=== PATIENT | male | born 1955 | race Caucasian/White ===

== ENCOUNTER 2019-05-17 21:59 | Emergency (ER) | payer MEDICAID, OTHER ==
[~2019-05-17] VITALS: Ht 185.4 cm; Wt 72.7 kg
[~2019-05-17 21:59] MED LIST: CLIN150C8 PO
[2019-05-17 22:06] VITALS: BP 165/91
== END 2019-05-18 01:05 | disposition home or self-care (01) ==
LOC: ER 22:01
DX: R03.0 Elevated blood-pressure reading, without diagnosis of hypertension (principal); R06.02 Shortness of breath; F17.210 Nicotine dependence, cigarettes, uncomplicated; Z98.890 Other specified postprocedural states; Z59.0 Homelessness; Z79.2 Long term (current) use of antibiotics
CPT/HCPCS: 93005; 99283

== ENCOUNTER 2019-06-17 20:33 | Emergency (ER) | payer MEDICAID, OTHER ==
[~2019-06-17] VITALS: Ht 182.9 cm; Wt 72.7 kg
--- NOTE | 2019-06-17 21:09 | NUR ---
pt is 63 yo male would like to complete lab tests he was suppose to have in April and he would like "paperwork for SSD", pt has no complaints at this time, resting quietly on gurney waiting to be evaluated by provider
[2019-06-17 22:04] VITALS: BP 146/102
== END 2019-06-17 22:12 | disposition home or self-care (01) ==
LOC: ER 20:34
DX: R20.0 Anesthesia of skin (principal); F17.200 Nicotine dependence, unspecified, uncomplicated; Z59.0 Homelessness; Z98.890 Other specified postprocedural states
CPT/HCPCS: 99281

== ENCOUNTER 2022-04-13 05:57 | Inpatient (IN) | payer MEDICAID, MEDICARE, OTHER ==
[~2022-04-13] VITALS: Ht 182.9 cm; Wt 77.3 kg
[2022-04-13] MEDS ORDERED: calcium gluconate inj. 2 GM in normal saline 100ml IV soln 100 ML IV STA (06:27)
[2022-04-13] MEDS ORDERED: calcium gluconate inj. 1 GM in NS 100ml IV soln (110 ML) IV ONE ×2 (06:50→06:54)
[2022-04-13 06:52] LABS: HEMATOCRIT 24.9 % (42.0-52.0); HEMOGLOBIN 8.1 g/dl (14.0-17.9); MEAN CORPUSCULAR HEMOGLOBIN 31.1 PG (27.0-31.0); MEAN CORPUSCULAR HGB CONC 32.6 g/dL (33.0-36.5); MEAN CORPUSCULAR VOLUME 95.2 FL (78-98); MEAN PLATELET VOLUME 7.8 FL (7.4-10.4); PLATELET COUNT 261 X10'3 (140-440); RED BLOOD COUNT 2.62 X10'6 (4.70-6.10); RED CELL DISTRIBUTION WIDTH 13.1 % (11.5-14.5)
[2022-04-13 07:00] LABS: ABG BASE EXCESS -20.2 mmol/L (-2.0-2.0); ABG HCO3 6.4 mmol/L (22.0-26.0); ABG OXYGEN SATURATION 98.7 % (94-97); ABG PCO2 (T) 16.9 mmHg (35.0-48.0); ABG PO2 (T) 231.2 mmHg (75.0-100.0); ALLEN'S TEST POSITIVE; FCOHb 0.6 % (0.0-3.9); FLOW 15 L/min; FMetHb 0.5 % (0.0-1.5); FO2Hb 97.6 % (94-97); PATIENT TEMPERATURE 35.6; TOTAL HEMOGLOBIN 7.5 G/dl (14.0-17.9)
--- NOTE | 2022-04-13 07:04 | NUR ---
Emergency transfusion started
[2022-04-13] MEDS ORDERED: CefTRIAXone/D5W-Rocephin 1gm 50 ML IV ONE (07:05)
[2022-04-13] MEDS ORDERED: ringers solution, lacted 1,000 ML IV ONE ×2 (07:10→09:50)
[2022-04-13 07:16] LABS: ALANINE AMINOTRANSFERASE 100 U/L (12-78); ALBUMIN 1.5 G/DL (3.4-5.0); ALBUMIN/GLOBULIN RATIO 0.4 (1.1-1.5); ALKALINE PHOSPHATASE 140 IU/L (46-116); ANION GAP 22 (8-16); BILIRUBIN,TOTAL 0.8 MG/DL (0.1-1.0); BLOOD UREA NITROGEN 44 MG/DL (7-18); BUN/CREATININE RATIO 25.6 (5.4-32.0); CALCIUM 8.1 MG/DL (8.5-10.1); CHLORIDE 100 MMOL/L (99-107); CREATININE 1.72 MG/DL (0.60-1.10); GLUCOSE 268 MG/DL (70-104); SODIUM 133 MMOL/L (135-145); TOTAL PROTEIN 5.5 G/DL (6.4-8.2); eGFR 40 ML/MIN
[2022-04-13] MEDS ORDERED: vancomycin/NS 1 GM ADD-VANTAGE 250 ML IV ONE (07:20)
[2022-04-13 07:23] LABS: ASPARTATE AMINO TRANSFERASE 87 U/L (10-37); POTASSIUM 5.3 MMOL/L (3.5-5.1)
[2022-04-13 07:27] LABS: PLATELET ESTIMATE NORMAL
[2022-04-13 07:28] LABS: TOTAL CARBON DIOXIDE 11.2 MMOL/L (24-32)
[2022-04-13 07:31] LABS: TOTAL CELLS COUNTED 100
[2022-04-13] MEDS ORDERED: LIDOcaine 2% 10ml TOPICAL JELLY (Urojet) TP ONE (08:02)
[2022-04-13 08:07] LABS: CLARITY,URINE CLEAR (Clear); COLOR,URINE YELLOW (Yellow); GLUCOSE, URINE 100 mg/dl (Neg); KETONES,URINE NEGATIVE (Neg); LEUKOCYTE ESTERASE ,URINE NEGATIVE (Neg); NITRITES, URINE NEGATIVE (Neg); OCCULT BLOOD,URINE NEGATIVE (Neg); PH,URINE 5.5 (4.8-8.0); PROTEIN,URINE TRACE mg/dl (Neg); UROBILINOGEN,URINE 0.2 E.U/dL (0.2-1.0)
[2022-04-13 08:15] LABS: UA COLLECTION TYPE FOLEY CATH
[2022-04-13] MEDS ORDERED: dextrose 50%-water 50ml dispensing syringe IV ONE (08:15)
[2022-04-13] MEDS ORDERED: insulin regular, human 10 units/0.1 ml syringe IV ONE (08:15)
[2022-04-13 08:16] LABS: RBC,URINE NONE SEEN /HPF (0-2)
[2022-04-13 08:17] LABS: BACTERIA,URINE FEW /HPF (Neg); MUCUS STRANDS FEW /LPF (Neg); SQUAMOUS EPITHELIAL CELL,UR MODERATE /LPF (FEW)
[2022-04-13 08:18] LABS: HYALINE CASTS 0-3 /LPF (NEGATIVE)
[2022-04-13] MEDS ORDERED: sodium bicarbonate (8.4%) 1 mEq/ml syringe IV ONE (08:22)
[2022-04-13] MEDS ORDERED: iohexol 300mg/ml 100ml inj. ONE (08:51)
[2022-04-13] MEDS ORDERED: sodium bicarbonate (8.4%) 1 mEq/ml syringe ONE (09:35)
[2022-04-13 10:36] LABS: ALBUMIN 0.9 G/DL (3.4-5.0); ANION GAP 10 (8-16); BLOOD UREA NITROGEN 41 MG/DL (7-18); BUN/CREATININE RATIO 25.9 (5.4-32.0); CALCIUM 7.1 MG/DL (8.5-10.1); CHLORIDE 105 MMOL/L (99-107); CREATININE 1.58 MG/DL (0.60-1.10); GLUCOSE 254 MG/DL (70-104); SODIUM 135 MMOL/L (135-145); TOTAL CARBON DIOXIDE 20.5 MMOL/L (24-32); eGFR 44 ML/MIN
[2022-04-13 10:37] LABS: BASOPHILS # (AUTO) 0.1 X10'3 (0-0.2); BASOPHILS % (AUTO) 0.2 % (0-1); EOSINOPHILS % (AUTO) 0 % (0-6); LYMPHOCYTES # (AUTO) 1.5 X10'3 (1.1-4.8); LYMPHOCYTES % (AUTO) 5.2 % (21-51); MEAN CORPUSCULAR HEMOGLOBIN 29.7 PG (27.0-31.0); MEAN CORPUSCULAR HGB CONC 32.5 g/dL (33.0-36.5); MEAN CORPUSCULAR VOLUME 91.3 FL (78-98); MONOCYTES # (AUTO) 2.2 X10'3 (0-0.9); MONOCYTES % (AUTO) 7.5 % (2-12); NEUTROPHILS # (AUTO) 25.4 X10'3 (1.8-7.7); NEUTROPHILS % (AUTO) 87.1 % (42-75); PLATELET COUNT 149 X10'3 (140-440); RED CELL DISTRIBUTION WIDTH 13.7 % (11.5-14.5)
[2022-04-13 10:48] LABS: WHITE BLOOD COUNT 29.1 X10'3 (4.5-11.0)
[2022-04-13 10:49] LABS: HEMOGLOBIN 6.8 g/dl (14.0-17.9)
[2022-04-13 11:20] VITALS: BP 85/56
[2022-04-13 11:35] VITALS: BP 105/70
[2022-04-13 12:02] VITALS: BP 103/75
[2022-04-13 12:15] LABS: APTT 32 SECONDS (22-32)
[2022-04-13 12:17] VITALS: BP 104/69
[2022-04-13] MEDS ORDERED: magnesium 4gm in 100ml NS 100 ML IV PRN (12:25)
[2022-04-13] MEDS ORDERED: mag hydrox/Alum hydrox/simeth 30ml oral suspension PO PRN (12:25)
[2022-04-13] MEDS ORDERED: magnesium Cl slow-release 64mg tablet PO PRN (12:25)
[2022-04-13] MEDS ORDERED: ondansetron/PF 4mg/2ml inj IV PRN (12:25)
[2022-04-13] MEDS ORDERED: potassium Cl 20 mEq SR tablet PO PRN ×2 (12:25)
[2022-04-13] MEDS ORDERED: acetaminophen 325mg tablet PO PRN (12:25)
[2022-04-13] MEDS ORDERED: magnesium hydroxide 30ml (MOM) UD suspension PO PRN (12:25)
[2022-04-13] MEDS ORDERED: potassium Cl 40MEQ/1/2NS 520ml 520 ML IV PRN (12:25)
[2022-04-13 12:44] VITALS: BP 118/72
[2022-04-13] MEDS: normal saline 1000ml 1,000 ML IV SCH ×2 (12:54→18:28)
[2022-04-13 14:22] LABS: HEMATOCRIT 33.7 % (42.0-52.0); HEMOGLOBIN 11.2 g/dl (14.0-17.9); MEAN CORPUSCULAR HEMOGLOBIN 28.7 PG (27.0-31.0); MEAN CORPUSCULAR HGB CONC 33.4 g/dL (33.0-36.5); MEAN PLATELET VOLUME 6.8 FL (7.4-10.4); PLATELET COUNT 132 X10'3 (140-440); RED BLOOD COUNT 3.92 X10'6 (4.70-6.10); RED CELL DISTRIBUTION WIDTH 16.6 % (11.5-14.5)
[2022-04-13] MEDS ORDERED: NO HOME MEDS (14:22)
[2022-04-13 14:28] LABS: WHITE BLOOD COUNT 50.1 X10'3 (4.5-11.0)
--- NOTE | 2022-04-13 14:35 | NUR ---
critical lab WBC 50.1, Dr Casas aware of critical value, gave verbal order to give vanco now
[2022-04-13] MEDS: piperacillin/tazo 3.375gm/50ml 50 ML IV SCH (15:04)
--- NOTE | 2022-04-13 15:11 | NUR ---
Louis berry in EDM - 04/13/22 at 1531 by BSINGH MD Casas @ bedside. Per start zoysn and vanco together. Pending time change for kain to start vanco
--- NOTE | 2022-04-13 15:22 | NUR ---
bloodly stool x 4 so far. Bright red blood
[2022-04-13] MEDS ORDERED: albumin (human) 25% 100 ML IV solution IV ONE ×2 (19:20→20:00)
[2022-04-13 19:47] LABS: HEMOGLOBIN 9.8 g/dl (14.0-17.9); MEAN CORPUSCULAR HEMOGLOBIN 28.7 PG (27.0-31.0); MEAN CORPUSCULAR HGB CONC 33.7 g/dL (33.0-36.5); MEAN CORPUSCULAR VOLUME 85.2 FL (78-98); MEAN PLATELET VOLUME 7.1 FL (7.4-10.4); PLATELET COUNT 131 X10'3 (140-440); RED CELL DISTRIBUTION WIDTH 17.3 % (11.5-14.5)
[2022-04-13] MEDS: K and/or MAG REPLACEMENT MC SCH (20:00)
[2022-04-13] MEDS ORDERED: albumin (human) 25% 100ml IV 100 ML in normal saline 500ml IV soln 400 ML IV ONE ×2 (20:00→20:19)
[2022-04-13] MEDS: docusate sod 100mg capsule PO SCH (20:00)
[2022-04-13 20:10] LABS: WHITE BLOOD COUNT 36.9 X10'3 (4.5-11.0)
[2022-04-13] MEDS ORDERED: ALBUMIN 5% IV ONE (20:17)
[2022-04-13] MEDS ORDERED: NORMAL SALINE IV ONE (20:17)
[2022-04-13] MEDS: NORepinephrine 8mg/ 250ml NS 250 ML IV SCH (21:32)
[2022-04-14] VITALS (25 sets, daily range): BP systolic 93–152; BP diastolic 49–100
[2022-04-14] MEDS: piperacillin/tazo 3.375gm/50ml 50 ML IV SCH ×3 (00:39→16:27)
[2022-04-14] MEDS: normal saline 1000ml 1,000 ML IV SCH ×4 (01:40→23:25)
[2022-04-14 02:44] LABS: MEAN CORPUSCULAR HEMOGLOBIN 29.3 PG (27.0-31.0); MEAN CORPUSCULAR HGB CONC 34.3 g/dL (33.0-36.5); MEAN CORPUSCULAR VOLUME 85.5 FL (78-98); MEAN PLATELET VOLUME 6.9 FL (7.4-10.4); PLATELET COUNT 129 X10'3 (140-440); RED BLOOD COUNT 2.28 X10'6 (4.70-6.10); RED CELL DISTRIBUTION WIDTH 17.2 % (11.5-14.5)
[2022-04-14 02:55] LABS: WHITE BLOOD COUNT 29.8 X10'3 (4.5-11.0)
[2022-04-14 02:56] LABS: HEMATOCRIT 19.4 % (42.0-52.0); HEMOGLOBIN 6.7 g/dl (14.0-17.9)
[2022-04-14 03:21] LABS: MAGNESIUM 1.4 MG/DL (1.5-2.4); POTASSIUM 4.1 MMOL/L (3.5-5.1)
[2022-04-14] MEDS: pantoprazole 40MG/NS 100ML BAG 100 ML IV SCH ×3 (03:21→21:18)
[2022-04-14] MEDS: K and/or MAG REPLACEMENT MC SCH ×2 (06:52→20:00)
[2022-04-14] MEDS: docusate sod 100mg capsule PO SCH ×2 (06:53→20:00)
[2022-04-14] MEDS ORDERED: ringers solution, lacted 1,000 ML IV ONE (08:20)
[2022-04-14 09:53] LABS: BASOPHILS # (AUTO) 0.1 X10'3 (0-0.2); BASOPHILS % (AUTO) 0.4 % (0-1); EOSINOPHILS # (AUTO) 0.1 X10'3 (0-0.9); EOSINOPHILS % (AUTO) 0.4 % (0-6); LYMPHOCYTES % (AUTO) 14.8 % (21-51); MEAN CORPUSCULAR HEMOGLOBIN 29.5 PG (27.0-31.0); MEAN CORPUSCULAR HGB CONC 32.9 g/dL (33.0-36.5); MEAN CORPUSCULAR VOLUME 89.6 FL (78-98); MEAN PLATELET VOLUME 7.1 FL (7.4-10.4); MONOCYTES # (AUTO) 1.7 X10'3 (0-0.9); MONOCYTES % (AUTO) 8.6 % (2-12); NEUTROPHILS # (AUTO) 15.2 X10'3 (1.8-7.7); NEUTROPHILS % (AUTO) 75.8 % (42-75); PLATELET COUNT 105 X10'3 (140-440); RED BLOOD COUNT 2.08 X10'6 (4.70-6.10); RED CELL DISTRIBUTION WIDTH 17.7 % (11.5-14.5); WHITE BLOOD COUNT 20.1 X10'3 (4.5-11.0)
[2022-04-14 09:56] LABS: HEMOGLOBIN 6.1 g/dl (14.0-17.9)
[2022-04-14 09:57] LABS: HEMATOCRIT 18.6 % (42.0-52.0)
[2022-04-14 10:11] LABS: PLATELET COUNT 105 X10'3 (140-440)
[2022-04-14 10:58] LABS: APTT 46 SECONDS (22-32); D-DIMER 1.99 MG/L FEU (0-0.50)
--- NOTE | 2022-04-14 11:35 | NUR ---
Initial: Pt admit DX septic shock, hematochezia, acute blood loss anemia, normocytic and hypochromic anemia, GAMA, and transaminitis per EMR. Pt currently NPO pending colonoscopy once stable per eviction specialist at rounds. Will monitor for nutrition intervention needs this admit. Rec: 1. advance diet as medically indicated to regular 2. bowel care per rx 3. scaled wt this admit; subsequent daily wts Addendum: 04/14/22 at [address] Amended: Links added.
[2022-04-14 11:41] LABS: ALANINE AMINOTRANSFERASE 694 U/L (12-78); ALBUMIN/GLOBULIN RATIO 0.8 (1.1-1.5); ALKALINE PHOSPHATASE 32 IU/L (46-116); ANION GAP 8 (8-16); ASPARTATE AMINO TRANSFERASE 883 U/L (10-37); BILIRUBIN,TOTAL 0.9 MG/DL (0.1-1.0); BLOOD UREA NITROGEN 38 MG/DL (7-18); BUN/CREATININE RATIO 33.9 (5.4-32.0); CREATININE 1.12 MG/DL (0.60-1.10); GLUCOSE 142 MG/DL (70-104); POTASSIUM 3.8 MMOL/L (3.5-5.1); SODIUM 143 MMOL/L (135-145); TOTAL CARBON DIOXIDE 17.9 MMOL/L (24-32); TOTAL PROTEIN 2.2 G/DL (6.4-8.2); eGFR 66 ML/MIN
[2022-04-14 12:55] LABS: ABG BASE EXCESS -3.8 mmol/L (-2.0-2.0); ABG HCO3 18.8 mmol/L (22.0-26.0); ABG OXYGEN SATURATION 97.6 % (94-97); ABG PCO2 (T) 25.4 mmHg (35.0-48.0); ABG PO2 (T) 112.4 mmHg (75.0-100.0); FCOHb 0.2 % (0.0-3.9); FLOW 2 L/min; FMetHb 0.3 % (0.0-1.5); FO2Hb 97.1 % (94-97); PATIENT TEMPERATURE 36.4; TOTAL HEMOGLOBIN 9.8 G/dl (14.0-17.9)
[2022-04-14] MEDS ORDERED: HYDROmorphone 1 mg/ml syringe IV PRN (13:05)
[2022-04-14 13:32] LABS: ALANINE AMINOTRANSFERASE 957 U/L (12-78); ALBUMIN 1.4 G/DL (3.4-5.0); ALBUMIN/GLOBULIN RATIO 0.9 (1.1-1.5); ALKALINE PHOSPHATASE 44 IU/L (46-116); ANION GAP 9 (8-16); BILIRUBIN,TOTAL 1.2 MG/DL (0.1-1.0); BLOOD UREA NITROGEN 47 MG/DL (7-18); BUN/CREATININE RATIO 33.8 (5.4-32.0); CALCIUM 6.5 MG/DL (8.5-10.1); CHLORIDE 112 MMOL/L (99-107); CREATININE 1.39 MG/DL (0.60-1.10); GLUCOSE 181 MG/DL (70-104); POTASSIUM 4.6 MMOL/L (3.5-5.1); SODIUM 140 MMOL/L (135-145); TOTAL CARBON DIOXIDE 18.8 MMOL/L (24-32); eGFR 51 ML/MIN
[2022-04-14 13:35] LABS: ASPARTATE AMINO TRANSFERASE 1274 U/L (10-37)
[2022-04-14] MEDS: nicotine 21mg patch - 24 hr TD SCH (13:56)
[2022-04-14] MEDS ORDERED: PEG 3350/Na sulf,bicarb,Cl/KCl oral sol 4 liter bottle PO ONE (17:15)
[2022-04-14 17:19] LABS: BASOPHILS # (AUTO) 0.1 X10'3 (0-0.2); BASOPHILS % (AUTO) 0.4 % (0-1); EOSINOPHILS # (AUTO) 0.1 X10'3 (0-0.9); EOSINOPHILS % (AUTO) 0.4 % (0-6); HEMATOCRIT 28.4 % (42.0-52.0); HEMOGLOBIN 9.4 g/dl (14.0-17.9); LYMPHOCYTES # (AUTO) 4.1 X10'3 (1.1-4.8); LYMPHOCYTES % (AUTO) 16.3 % (21-51); MEAN CORPUSCULAR HEMOGLOBIN 28.5 PG (27.0-31.0); MEAN CORPUSCULAR HGB CONC 33.2 g/dL (33.0-36.5); MEAN CORPUSCULAR VOLUME 85.6 FL (78-98); MEAN PLATELET VOLUME 7.2 FL (7.4-10.4); MONOCYTES # (AUTO) 1.7 X10'3 (0-0.9); MONOCYTES % (AUTO) 6.8 % (2-12); NEUTROPHILS # (AUTO) 19.1 X10'3 (1.8-7.7); NEUTROPHILS % (AUTO) 76.1 % (42-75); PLATELET COUNT 67 X10'3 (140-440); RED BLOOD COUNT 3.32 X10'6 (4.70-6.10); RED CELL DISTRIBUTION WIDTH 15.9 % (11.5-14.5)
[2022-04-14 17:21] LABS: WHITE BLOOD COUNT 25.1 X10'3 (4.5-11.0)
[2022-04-14] MEDS: HYDROmorphone inj. 0.5 MG/0.5 ML DISP.SYRIN IV PRN ×2 (19:06→23:40)
--- NOTE | 2022-04-14 20:00 | NUR ---
Pt given ana cristina to drink, explanation given regarding need to perform tests to identify bleeding areas and treat them. explained ana cristina needed to clean intestinal track so that the bleeding areas can be visualized. pt verbalizes understanding of information given.
[2022-04-14 20:22] LABS: HEMATOCRIT 24.8 % (42.0-52.0); HEMOGLOBIN 8.1 g/dl (14.0-17.9); MEAN CORPUSCULAR HEMOGLOBIN 28.2 PG (27.0-31.0); MEAN CORPUSCULAR HGB CONC 32.8 g/dL (33.0-36.5); MEAN CORPUSCULAR VOLUME 86.2 FL (78-98); MEAN PLATELET VOLUME 7.4 FL (7.4-10.4); PLATELET COUNT 83 X10'3 (140-440); RED BLOOD COUNT 2.88 X10'6 (4.70-6.10); RED CELL DISTRIBUTION WIDTH 16.5 % (11.5-14.5)
[2022-04-14 20:23] LABS: WHITE BLOOD COUNT 29.5 X10'3 (4.5-11.0)
--- NOTE | 2022-04-14 20:30 | NUR ---
Pt has not drunk any ana cristina. Encouraged to make an effort to drink this as it is necessary to be able to identify the bleeding areas. Pt verbalizes understanding, but states he feels his stomach hurts too much to try to drink it. Advised too soon for more zofran, will offer medication when able.
--- NOTE | 2022-04-14 23:50 | NUR ---
Pt with increasing restlessness and anxiety. Screaming out for help, even with RN at bedside. Unable to monitor O2 sat due to cold, clamped down extremities and ears. O2 2L/NC as precaution. am labs sent at this time.
[2022-04-15] VITALS (39 sets, daily range): BP systolic 11–148; BP diastolic 30–88
[2022-04-15 00:16] LABS: BASOPHILS # (AUTO) 0.1 X10'3 (0-0.2); BASOPHILS % (AUTO) 0.3 % (0-1); EOSINOPHILS # (AUTO) 0.1 X10'3 (0-0.9); EOSINOPHILS % (AUTO) 0.2 % (0-6); HEMATOCRIT 25.5 % (42.0-52.0); HEMOGLOBIN 8.3 g/dl (14.0-17.9); LYMPHOCYTES # (AUTO) 7.6 X10'3 (1.1-4.8); LYMPHOCYTES % (AUTO) 20.2 % (21-51); MEAN CORPUSCULAR HEMOGLOBIN 28.3 PG (27.0-31.0); MEAN CORPUSCULAR HGB CONC 32.5 g/dL (33.0-36.5); MEAN CORPUSCULAR VOLUME 87.1 FL (78-98); MEAN PLATELET VOLUME 7.7 FL (7.4-10.4); MONOCYTES # (AUTO) 2.8 X10'3 (0-0.9); MONOCYTES % (AUTO) 7.5 % (2-12); NEUTROPHILS # (AUTO) 27.1 X10'3 (1.8-7.7); NEUTROPHILS % (AUTO) 71.8 % (42-75); PLATELET COUNT 110 X10'3 (140-440); RED BLOOD COUNT 2.93 X10'6 (4.70-6.10); RED CELL DISTRIBUTION WIDTH 16.7 % (11.5-14.5)
[2022-04-15 00:27] LABS: ALANINE AMINOTRANSFERASE 988 U/L (12-78); ALBUMIN 1.4 G/DL (3.4-5.0); ALBUMIN/GLOBULIN RATIO 0.9 (1.1-1.5); ALKALINE PHOSPHATASE 64 IU/L (46-116); ASPARTATE AMINO TRANSFERASE 964 U/L (10-37); BLOOD UREA NITROGEN 51 MG/DL (7-18); BUN/CREATININE RATIO 25.5 (5.4-32.0); CALCIUM 6.5 MG/DL (8.5-10.1); GLUCOSE 127 MG/DL (70-104); MAGNESIUM 1.5 MG/DL (1.5-2.4); PHOSPHORUS 6.2 MG/DL (2.3-4.5); eGFR 34 ML/MIN
[2022-04-15 00:32] LABS: ANION GAP 17 (8-16); CHLORIDE 112 MMOL/L (99-107); POTASSIUM 5.1 MMOL/L (3.5-5.1); SODIUM 138 MMOL/L (135-145)
[2022-04-15] MEDS: piperacillin/tazo 3.375gm/50ml 50 ML IV SCH ×3 (00:38→16:32)
[2022-04-15 00:39] LABS: TOTAL CARBON DIOXIDE 9.3 MMOL/L (24-32)
[2022-04-15 00:50] LABS: WHITE BLOOD COUNT 37.8 X10'3 (4.5-11.0)
[2022-04-15 00:56] LABS: ABG BASE EXCESS -23.9 mmol/L (-2.0-2.0); ABG HCO3 5.3 mmol/L (22.0-26.0); ABG OXYGEN SATURATION 94.8 % (94-97); ABG PCO2 (T) 19.9 mmHg (35.0-48.0); ABG PO2 (T) 102.7 mmHg (75.0-100.0); FCOHb 0.3 % (0.0-3.9); FLOW 2 L/min; FMetHb 0.7 % (0.0-1.5); FO2Hb 93.9 % (94-97); TOTAL HEMOGLOBIN 9.1 G/dl (14.0-17.9)
[2022-04-15] MEDS ORDERED: sodium bicarbonate (8.4%) inj. 1 MEQ/ML ML ONE ×5 (00:57→16:04)
[2022-04-15] MEDS: NORepinephrine 8mg/ 250ml NS 250 ML IV SCH ×2 (01:01→04:43)
[2022-04-15] MEDS ORDERED: ringers solution, lacted 1,000 ML IV ONE (01:10)
[2022-04-15] MEDS ORDERED: sodium bicarbonate (8.4%) 1 mEq/ml syringe IV ONE ×3 (01:10→11:40)
[2022-04-15] MEDS ORDERED: etomidate 2mg/ml inj. ONE (02:00)
[2022-04-15] MEDS ORDERED: succinylcholine 20mg/ml inj IV ONE (02:20)
[2022-04-15] MEDS ORDERED: etomidate 2mg/ml inj. IV ONE (02:20)
--- NOTE | 2022-04-15 02:20 | NUR ---
ERMD at bedside to intubate. informed by ER staff prior to MD's arrival that she will not place the central line for us. pt has multiple vasoactive drips and blood products concurrently infusing via a midline IV.
[2022-04-15] MEDS ORDERED: vasopressin inj. 40 UNIT in dextrose 5%-water 50ml 38 ML IV SCH (02:25)
[2022-04-15] MEDS ORDERED: propofol 1000mg/100ml bottle 100 ML IV SCH (02:25)
[2022-04-15 02:39] LABS: ABG BASE EXCESS -21.3 mmol/L (-2.0-2.0); ABG HCO3 8.1 mmol/L (22.0-26.0); ABG OXYGEN SATURATION 98.2 % (94-97); ABG PCO2 (T) 31.6 mmHg (35.0-48.0); ABG PO2 (T) 205.8 mmHg (75.0-100.0); FCOHb 0.3 % (0.0-3.9); FMetHb 0.9 % (0.0-1.5); PEEP 5 cm H2O; RESPIRATORY RATE 16 b/min; TIDAL VOLUME 500 mL; TOTAL HEMOGLOBIN 7.1 G/dl (14.0-17.9)
[2022-04-15 03:21] LABS: NUCLEATED RED BLOOD CELLS 1 /100WBC (0-0); TOTAL CELLS COUNTED 100
[2022-04-15 03:22] LABS: ANISOCYTOSIS 1+; PLATELET ESTIMATE DECREASED; SMUDGE CELLS 2+
[2022-04-15 03:27] LABS: BASOPHILS # (AUTO) 0.1 X10'3 (0-0.2); BASOPHILS % (AUTO) 0.4 % (0-1); EOSINOPHILS # (AUTO) 0.1 X10'3 (0-0.9); EOSINOPHILS % (AUTO) 0.3 % (0-6); HEMATOCRIT 22.1 % (42.0-52.0); LYMPHOCYTES # (AUTO) 5.2 X10'3 (1.1-4.8); LYMPHOCYTES % (AUTO) 14.3 % (21-51); MEAN CORPUSCULAR HEMOGLOBIN 28.1 PG (27.0-31.0); MEAN CORPUSCULAR VOLUME 90.6 FL (78-98); MONOCYTES # (AUTO) 2.9 X10'3 (0-0.9); MONOCYTES % (AUTO) 7.9 % (2-12); NEUTROPHILS % (AUTO) 77.1 % (42-75); PLATELET COUNT 101 X10'3 (140-440); RED BLOOD COUNT 2.44 X10'6 (4.70-6.10); RED CELL DISTRIBUTION WIDTH 17.3 % (11.5-14.5)
[2022-04-15 03:31] LABS: HEMOGLOBIN 6.9 g/dl (14.0-17.9); WHITE BLOOD COUNT 36.3 X10'3 (4.5-11.0)
[2022-04-15] MEDS ORDERED: FENTANYL-0.9 % NACL/PF 100 ML IV PRN (03:40)
[2022-04-15 03:46] LABS: ALBUMIN 1.1 G/DL (3.4-5.0); ALBUMIN/GLOBULIN RATIO 0.7 (1.1-1.5); ALKALINE PHOSPHATASE 68 IU/L (46-116); ANION GAP 23 (8-16); BILIRUBIN,TOTAL 1.9 MG/DL (0.1-1.0); BLOOD UREA NITROGEN 49 MG/DL (7-18); CALCIUM 6.9 MG/DL (8.5-10.1); CHLORIDE 113 MMOL/L (99-107); CREATININE 2.13 MG/DL (0.60-1.10); GLUCOSE 75 MG/DL (70-104); MAGNESIUM 1.7 MG/DL (1.5-2.4); PHOSPHORUS 8.3 MG/DL (2.3-4.5); POTASSIUM 5.6 MMOL/L (3.5-5.1); SODIUM 145 MMOL/L (135-145); TOTAL PROTEIN 2.7 G/DL (6.4-8.2); eGFR 31 ML/MIN
[2022-04-15 03:48] LABS: ASPARTATE AMINO TRANSFERASE 1397 U/L (10-37)
--- NOTE | 2022-04-15 04:25 | NUR ---
Spoke to patient's nephew: Maurilio Medina listed as patient's next of kin on face sheet. Made aware that patient is very ill and hs condition is very unstable. He stated that the patient wanted everything done and that he "doesn't have anyone" other than him and his dad. He stated that patient is estranged from his son and has no way to contact him. Nephew states that his father: Aditya Medina is the patient's half brother and he would contact him.
[2022-04-15 04:30] LABS: ALANINE AMINOTRANSFERASE 1169 U/L (12-78)
[2022-04-15] MEDS: sodium bicarbonate (8.4%) inj. 150 MEQ in dextrose 5%-water 1,000 ML IV SCH ×2 (04:52→12:40)
--- NOTE | 2022-04-15 04:58 | NUR ---
sPOKEN WITH kristina Gomez dnp MULTIPLE TIMES OVER THE PAST COUPLE OF HOURS RELATED TO THIS VERY CRITICAL PATIENT. oRDERS HAVE BEEN RECEIVED, NOTED AND IMPLEMENTED. CURRENTLY PT IS MAXED ON LEVO AND VASO WITH A CUFF PRESSURE OF 54/34. 1 UNIT OF PACKED CELLS AND 1 UNIT OF FFP IS INFUSING ORDERED
[2022-04-15] MEDS: NORepinephrine inj. 32 MG in normal saline 250ml IV soln 218 ML IV SCH ×3 (05:54→19:01)
[2022-04-15] MEDS: normal saline 1000ml 1,000 ML IV SCH (06:46)
[2022-04-15 06:57] LABS: BASOPHILS # (AUTO) 0.1 X10'3 (0-0.2); BASOPHILS % (AUTO) 0.3 % (0-1); EOSINOPHILS # (AUTO) 0.1 X10'3 (0-0.9); EOSINOPHILS % (AUTO) 0.2 % (0-6); HEMATOCRIT 25.2 % (42.0-52.0); HEMOGLOBIN 7.6 g/dl (14.0-17.9); LYMPHOCYTES # (AUTO) 4.2 X10'3 (1.1-4.8); LYMPHOCYTES % (AUTO) 12.8 % (21-51); MEAN CORPUSCULAR HEMOGLOBIN 28.6 PG (27.0-31.0); MEAN CORPUSCULAR HGB CONC 30.1 g/dL (33.0-36.5); MEAN CORPUSCULAR VOLUME 95.1 FL (78-98); MEAN PLATELET VOLUME 7.9 FL (7.4-10.4); MONOCYTES # (AUTO) 3.4 X10'3 (0-0.9); MONOCYTES % (AUTO) 10.3 % (2-12); NEUTROPHILS # (AUTO) 24.8 X10'3 (1.8-7.7); NEUTROPHILS % (AUTO) 76.4 % (42-75); PLATELET COUNT 84 X10'3 (140-440); RED BLOOD COUNT 2.65 X10'6 (4.70-6.10); RED CELL DISTRIBUTION WIDTH 17.5 % (11.5-14.5)
[2022-04-15 06:59] LABS: WHITE BLOOD COUNT 32.4 X10'3 (4.5-11.0)
[2022-04-15 07:05] LABS: ALBUMIN 1.2 G/DL (3.4-5.0); ALBUMIN/GLOBULIN RATIO 0.7 (1.1-1.5); ALKALINE PHOSPHATASE 76 IU/L (46-116); ANION GAP 27 (8-16); BILIRUBIN,TOTAL 2.2 MG/DL (0.1-1.0); BLOOD UREA NITROGEN 47 MG/DL (7-18); CALCIUM 7.3 MG/DL (8.5-10.1); CHLORIDE 111 MMOL/L (99-107); CREATININE 2.35 MG/DL (0.60-1.10); GLUCOSE 74 MG/DL (70-104); SODIUM 144 MMOL/L (135-145); TOTAL PROTEIN 2.9 G/DL (6.4-8.2); eGFR 28 ML/MIN
[2022-04-15 07:35] LABS: ALANINE AMINOTRANSFERASE 1460 U/L (12-78); ASPARTATE AMINO TRANSFERASE 1914 U/L (10-37)
[2022-04-15 07:36] LABS: POTASSIUM 6.3 MMOL/L (3.5-5.1)
[2022-04-15] MEDS ORDERED: normal saline 1000ml 1,000 ML IV ONE (07:45)
[2022-04-15] MEDS: nicotine 21mg patch - 24 hr TD SCH (08:00)
[2022-04-15] MEDS: pantoprazole 40MG/NS 100ML BAG 100 ML IV SCH ×2 (08:00→20:45)
[2022-04-15] MEDS: docusate sod 100mg capsule PO SCH ×2 (08:00→20:00)
[2022-04-15 08:13] LABS: PLATELET ESTIMATE DECREASED; TOTAL CELLS COUNTED 100
[2022-04-15 08:14] LABS: ANISOCYTOSIS 1+; BURR CELLS FEW; POLYCHROMASIA 1+
[2022-04-15] MEDS: vancomycin/NS 1 GM ADD-VANTAGE 250 ML IV SCH ×2 (08:21→08:47)
[2022-04-15] MEDS ORDERED: dextrose 50%-water 50ml dispensing syringe IV ONE (08:44)
[2022-04-15] MEDS ORDERED: NORepinephrine 8 MG in NS 250 ML BAG (32 mcg/ml) IV ONE (09:00)
[2022-04-15] MEDS ORDERED: sevoflurane 250ml liquid IH ONE (09:00)
[2022-04-15] MEDS ORDERED: propofol 10mg/ml 20ml vial IV ONE (09:00)
[2022-04-15] MEDS ORDERED: vasoPRESSIN 20 units/ml inj. ONE (09:00)
[2022-04-15] MEDS ORDERED: vasopressin inj. 40 UNIT in normal saline 50ml IV soln 38 ML IV SCH (09:21)
[2022-04-15] MEDS ORDERED: MIDAZolam 1 MG/ML 5ML VIAL ONE (09:39)
[2022-04-15] MEDS ORDERED: fentaNYL /PF 50mcg/ml 5ml ampule ONE (10:21)
[2022-04-15] MEDS ORDERED: rocuronium 10mg/ml inj IV ONE ×3 (10:21→10:42)
[2022-04-15] MEDS ORDERED: dexamethasone sod phosphate 4mg/ml inj. ONE (10:21)
[2022-04-15 10:43] LABS: ABG BASE EXCESS -28.8 mmol/L (-2.0-2.0); ABG HCO3 5.4 mmol/L (22.0-26.0); ABG PCO2 (T) 32.5 mmHg (35.0-48.0); ABG PO2 (T) 196.8 mmHg (75.0-100.0); PATIENT TEMPERATURE 35.8; RESPIRATORY RATE 12 b/min; TIDAL VOLUME 500 mL
[2022-04-15 10:47] LABS: ABG BASE EXCESS -27.8 mmol/L (-2.0-2.0); ABG HCO3 5.3 mmol/L (22.0-26.0); ABG OXYGEN SATURATION 98.1 % (94-97); ABG PCO2 (T) 32.5 mmHg (35.0-48.0); ABG PO2 (T) 190.7 mmHg (75.0-100.0); FCOHb 0.2 % (0.0-3.9); FMetHb 0.5 % (0.0-1.5); FO2Hb 97.4 % (94-97); PATIENT TEMPERATURE 35.8; RESPIRATORY RATE 12 b/min; TIDAL VOLUME 500 mL; TOTAL HEMOGLOBIN 9.8 G/dl (14.0-17.9)
--- NOTE | 2022-04-15 11:09 | NUR ---
F/u 04/15: Pt intubated early this AM per EMR. Remains NPO currently in OR at time of RD rounds this AM for emergency laparotomy/colectomy/colostomy and indicated procedures per EMR. LBM 04/14. Will monitor for OR notes and further nutrition intervention needs this admit. Rec: 1. monitor for nutrition support needs pending OR results and further physician notes if prolonged intubation post-op 2. upon extubation advance diet as medically indicated to regular; consider low-residue diet IF to have colostomy or bowel resection 3. bowel care per rx 4. scaled wt this admit; subsequent daily wts Addendum: 04/15/22 at [address] Amended: Links added.
[2022-04-15] MEDS ORDERED: magnesium 4gm in 100ml NS 100 ML IV PRN (11:40)
[2022-04-15] MEDS ORDERED: calcium chloride inj. 1,000 MG in normal saline 100ml IV soln 100 ML IV PRN (11:40)
[2022-04-15] MEDS ORDERED: potassium Cl 40MEQ/270ML bag 270 ML IV PRN (11:40)
[2022-04-15] MEDS ORDERED: sodium phosphate inj. 30 MMOL in normal saline 250ml IV soln 250 ML IV PRN (11:40)
[2022-04-15] MEDS: bicarb dialysis sol 2K+/3 Ca2+ 5,000 ML HE SCH ×3 (11:40→14:14)
[2022-04-15] MEDS ORDERED: desmopressin 4 MCG/1 ML amp SQ STA (11:59)
[2022-04-15] MEDS ORDERED: Duosol 4K/3 Ca (w/calcium) 5,000 ML HE SCH (12:05)
[2022-04-15 12:26] LABS: EOSINOPHILS % (AUTO) 0.1 % (0-6)
[2022-04-15 12:27] LABS: BASOPHILS # (AUTO) 0.2 X10'3 (0-0.2); BASOPHILS % (AUTO) 0.6 % (0-1); LYMPHOCYTES # (AUTO) 3.6 X10'3 (1.1-4.8); LYMPHOCYTES % (AUTO) 11.6 % (21-51); MEAN CORPUSCULAR HEMOGLOBIN 28.2 PG (27.0-31.0); MEAN CORPUSCULAR HGB CONC 30.6 g/dL (33.0-36.5); MEAN CORPUSCULAR VOLUME 92.2 FL (78-98); MEAN PLATELET VOLUME 7.9 FL (7.4-10.4); MONOCYTES # (AUTO) 1.9 X10'3 (0-0.9); MONOCYTES % (AUTO) 6.1 % (2-12); NEUTROPHILS # (AUTO) 25.6 X10'3 (1.8-7.7); NEUTROPHILS % (AUTO) 81.6 % (42-75); RED BLOOD COUNT 2.49 X10'6 (4.70-6.10); RED CELL DISTRIBUTION WIDTH 15.9 % (11.5-14.5)
[2022-04-15 12:33] LABS: WHITE BLOOD COUNT 31.4 X10'3 (4.5-11.0)
[2022-04-15 12:34] LABS: PLATELET COUNT 46 X10'3 (140-440)
[2022-04-15] MEDS ORDERED: albumin (human) 25% 100 ML IV solution IV ONE (12:50)
[2022-04-15] MEDS ORDERED: vancomycin/NS 1 GM ADD-VANTAGE 250 ML IV PRN (14:06)
[2022-04-15] MEDS ORDERED: CALCIUM GLUC 1gm/50ml NACL,iso 50 ML IV ONE (14:40)
[2022-04-15 14:43] LABS: HEMOGLOBIN 8.7 g/dl (14.0-17.9); MEAN CORPUSCULAR VOLUME 93.5 FL (78-98); MONOCYTES # (AUTO) 2.1 X10'3 (0-0.9); NEUTROPHILS # (AUTO) 32.3 X10'3 (1.8-7.7)
[2022-04-15 14:45] LABS: BASOPHILS # (AUTO) 0.3 X10'3 (0-0.2); BASOPHILS % (AUTO) 0.7 % (0-1); EOSINOPHILS # (AUTO) 0.1 X10'3 (0-0.9); EOSINOPHILS % (AUTO) 0.2 % (0-6); LYMPHOCYTES # (AUTO) 3.1 X10'3 (1.1-4.8); LYMPHOCYTES % (AUTO) 8.2 % (21-51); MEAN CORPUSCULAR HEMOGLOBIN 29.2 PG (27.0-31.0); MEAN CORPUSCULAR HGB CONC 31.2 g/dL (33.0-36.5); MEAN PLATELET VOLUME 11.6 FL (7.4-10.4); MONOCYTES % (AUTO) 5.5 % (2-12); NEUTROPHILS % (AUTO) 85.4 % (42-75); RED BLOOD COUNT 2.98 X10'6 (4.70-6.10); RED CELL DISTRIBUTION WIDTH 16.3 % (11.5-14.5)
[2022-04-15 14:58] LABS: WHITE BLOOD COUNT 37.9 X10'3 (4.5-11.0)
[2022-04-15 14:59] LABS: PLATELET COUNT 28 X10'3 (140-440)
[2022-04-15 15:08] LABS: ANION GAP 27 (8-16); BLOOD UREA NITROGEN 42 MG/DL (7-18); BUN/CREATININE RATIO 16.4 (5.4-32.0); CHLORIDE 108 MMOL/L (99-107); CREATININE 2.56 MG/DL (0.60-1.10); GLUCOSE 131 MG/DL (70-104); SODIUM 146 MMOL/L (135-145); eGFR 25 ML/MIN
[2022-04-15 15:12] LABS: ANISOCYTOSIS 1+; BURR CELLS 1+; ELLIPTOCYTES FEW; LARGE PLATELETS FEW; PLATELET ESTIMATE DECREASED; TOTAL CELLS COUNTED 100
[2022-04-15 15:27] LABS: PHOSPHORUS 12.5 MG/DL (2.3-4.5)
[2022-04-15 15:35] LABS: POTASSIUM 7.2 MMOL/L (3.5-5.1)
[2022-04-15 15:59] LABS: ABG BASE EXCESS -20.7 mmol/L (-2.0-2.0); ABG HCO3 10.1 mmol/L (22.0-26.0); ABG PCO2 (T) 41.3 mmHg (35.0-48.0); ABG PO2 (T) 61.3 mmHg (75.0-100.0); PATIENT TEMPERATURE 36.8; PEEP 5 cm H2O; RESPIRATORY RATE 18 b/min; TIDAL VOLUME 533 mL
[2022-04-15] MEDS ORDERED: hydrocortisone sod succ/PF 250mg/2ml inj. IV SCH (16:00)
[2022-04-15 16:14] LABS: HEMATOCRIT 26.3 % (42.0-52.0); HEMOGLOBIN 8.3 g/dl (14.0-17.9); MEAN CORPUSCULAR HEMOGLOBIN 29.3 PG (27.0-31.0); MEAN CORPUSCULAR HGB CONC 31.4 g/dL (33.0-36.5)
[2022-04-15 16:16] LABS: BASOPHILS # (AUTO) 0.1 X10'3 (0-0.2); BASOPHILS % (AUTO) 0.3 % (0-1); EOSINOPHILS # (AUTO) 0.3 X10'3 (0-0.9); EOSINOPHILS % (AUTO) 0.7 % (0-6); LYMPHOCYTES # (AUTO) 2.7 X10'3 (1.1-4.8); LYMPHOCYTES % (AUTO) 7.2 % (21-51); MEAN CORPUSCULAR VOLUME 93.2 FL (78-98); MEAN PLATELET VOLUME 8.2 FL (7.4-10.4); MONOCYTES # (AUTO) 0.9 X10'3 (0-0.9); MONOCYTES % (AUTO) 2.5 % (2-12); NEUTROPHILS # (AUTO) 33.2 X10'3 (1.8-7.7); NEUTROPHILS % (AUTO) 89.3 % (42-75); PLATELET COUNT 93 X10'3 (140-440); RED BLOOD COUNT 2.83 X10'6 (4.70-6.10); RED CELL DISTRIBUTION WIDTH 16.2 % (11.5-14.5)
[2022-04-15] MEDS ORDERED: hydrocortisone sod succ/PF 100mg/2ml inj. IV SCH (16:18)
[2022-04-15 16:19] LABS: WHITE BLOOD COUNT 37.7 X10'3 (4.5-11.0)
[2022-04-15] MEDS: albumin (Human) 5% 250ml 500 ML IV SCH ×2 (16:34→21:08)
[2022-04-15 16:51] LABS: ALBUMIN 2.7 G/DL (3.4-5.0); ANION GAP 25 (8-16); BLOOD UREA NITROGEN 41 MG/DL (7-18); BUN/CREATININE RATIO 16.4 (5.4-32.0); CHLORIDE 108 MMOL/L (99-107); GLUCOSE 137 MG/DL (70-104); MAGNESIUM 1.9 MG/DL (1.5-2.4); PHOSPHORUS 12.3 MG/DL (2.3-4.5); SODIUM 145 MMOL/L (135-145); eGFR 26 ML/MIN
[2022-04-15 16:52] LABS: POTASSIUM 7.1 MMOL/L (3.5-5.1); TOTAL CARBON DIOXIDE 12.4 MMOL/L (24-32)
[2022-04-15 17:17] LABS: HEMOGLOBIN 7.8 g/dl (14.0-17.9)
[2022-04-15 17:18] LABS: BASOPHILS # (AUTO) 0.3 X10'3 (0-0.2); BASOPHILS % (AUTO) 0.9 % (0-1); EOSINOPHILS # (AUTO) 0.1 X10'3 (0-0.9); EOSINOPHILS % (AUTO) 0.2 % (0-6); HEMATOCRIT 24.9 % (42.0-52.0); LYMPHOCYTES # (AUTO) 2.3 X10'3 (1.1-4.8); LYMPHOCYTES % (AUTO) 6.3 % (21-51); MEAN CORPUSCULAR HEMOGLOBIN 28.7 PG (27.0-31.0); MEAN CORPUSCULAR HGB CONC 31.2 g/dL (33.0-36.5); MEAN CORPUSCULAR VOLUME 91.9 FL (78-98); MEAN PLATELET VOLUME 8.2 FL (7.4-10.4); MONOCYTES # (AUTO) 2.1 X10'3 (0-0.9); MONOCYTES % (AUTO) 5.6 % (2-12); NEUTROPHILS # (AUTO) 32.2 X10'3 (1.8-7.7); PLATELET COUNT 85 X10'3 (140-440); RED BLOOD COUNT 2.71 X10'6 (4.70-6.10)
[2022-04-15 17:38] LABS: ALBUMIN 2.9 G/DL (3.4-5.0); ANION GAP 26 (8-16); BLOOD UREA NITROGEN 40 MG/DL (7-18); BUN/CREATININE RATIO 16.2 (5.4-32.0); CHLORIDE 107 MMOL/L (99-107); CREATININE 2.47 MG/DL (0.60-1.10); GLUCOSE 139 MG/DL (70-104); SODIUM 147 MMOL/L (135-145); eGFR 26 ML/MIN
[2022-04-15 17:40] LABS: PHOSPHORUS 12.2 MG/DL (2.3-4.5)
[2022-04-15 17:42] LABS: POTASSIUM 7.1 MMOL/L (3.5-5.1); TOTAL CARBON DIOXIDE 14.3 MMOL/L (24-32)
--- NOTE | 2022-04-15 17:42 | NUR ---
Called Dr Casas, again, to update on pt's condition. SBP still in mid 60s, LA 18, K 7.1, worsening pulm edema, increased GIANCARLO OP, ABG. Yessenia will call Amelia to make plan going forward. Pt has received 16 red, hose tester ffp and cryo up to this point. Pt's son was at bedside and updated on pt's grim prognosis as well as pt's brother in law via phone.
[2022-04-15] MEDS: sodium bicarbonate (8.4%) inj. 150 MEQ in dextrose 5%-water 850 ML IV SCH ×2 (17:50→22:55)
[2022-04-15 18:18] LABS: PLATELET COUNT 79 X10'3 (140-440)
[2022-04-15 18:20] LABS: BASOPHILS # (AUTO) 0.3 X10'3 (0-0.2); BASOPHILS % (AUTO) 0.9 % (0-1); EOSINOPHILS # (AUTO) 0.3 X10'3 (0-0.9); EOSINOPHILS % (AUTO) 0.8 % (0-6); HEMATOCRIT 23.9 % (42.0-52.0); HEMOGLOBIN 7.6 g/dl (14.0-17.9); LYMPHOCYTES # (AUTO) 2.7 X10'3 (1.1-4.8); LYMPHOCYTES % (AUTO) 7.5 % (21-51); MEAN CORPUSCULAR HEMOGLOBIN 29.3 PG (27.0-31.0); MEAN CORPUSCULAR VOLUME 91.7 FL (78-98); MEAN PLATELET VOLUME 8.3 FL (7.4-10.4); MONOCYTES # (AUTO) 1.8 X10'3 (0-0.9); MONOCYTES % (AUTO) 4.9 % (2-12); NEUTROPHILS # (AUTO) 30.9 X10'3 (1.8-7.7); NEUTROPHILS % (AUTO) 85.9 % (42-75); RED CELL DISTRIBUTION WIDTH 15.6 % (11.5-14.5)
[2022-04-15 18:34] LABS: WHITE BLOOD COUNT 35.9 X10'3 (4.5-11.0)
[2022-04-15 18:50] LABS: ALBUMIN 3.2 G/DL (3.4-5.0); ANION GAP 23 (8-16); BLOOD UREA NITROGEN 40 MG/DL (7-18); BUN/CREATININE RATIO 15.9 (5.4-32.0); CHLORIDE 107 MMOL/L (99-107); CREATININE 2.51 MG/DL (0.60-1.10); GLUCOSE 141 MG/DL (70-104); SODIUM 145 MMOL/L (135-145); TOTAL CARBON DIOXIDE 15.1 MMOL/L (24-32); eGFR 26 ML/MIN
[2022-04-15 20:34] LABS: HEMATOCRIT 23.1 % (42.0-52.0); HEMOGLOBIN 7.2 g/dl (14.0-17.9); MEAN CORPUSCULAR HEMOGLOBIN 28.7 PG (27.0-31.0); MEAN CORPUSCULAR HGB CONC 31.1 g/dL (33.0-36.5); MEAN CORPUSCULAR VOLUME 92.3 FL (78-98); MEAN PLATELET VOLUME 8.2 FL (7.4-10.4); PLATELET COUNT 73 X10'3 (140-440); RED CELL DISTRIBUTION WIDTH 15.9 % (11.5-14.5)
[2022-04-15 20:59] LABS: WHITE BLOOD COUNT 36.4 X10'3 (4.5-11.0)
[2022-04-15 23:39] LABS: BASOPHILS # (AUTO) 0.1 X10'3 (0-0.2); BASOPHILS % (AUTO) 0.3 % (0-1); EOSINOPHILS # (AUTO) 0.4 X10'3 (0-0.9); EOSINOPHILS % (AUTO) 1.1 % (0-6); LYMPHOCYTES # (AUTO) 2.5 X10'3 (1.1-4.8); LYMPHOCYTES % (AUTO) 7.5 % (21-51); MEAN CORPUSCULAR HGB CONC 31.1 g/dL (33.0-36.5); MEAN CORPUSCULAR VOLUME 93.1 FL (78-98); MEAN PLATELET VOLUME 8.4 FL (7.4-10.4); MONOCYTES # (AUTO) 1.9 X10'3 (0-0.9); MONOCYTES % (AUTO) 5.6 % (2-12); NEUTROPHILS # (AUTO) 28.9 X10'3 (1.8-7.7); NEUTROPHILS % (AUTO) 85.5 % (42-75); PLATELET COUNT 68 X10'3 (140-440); RED BLOOD COUNT 2.29 X10'6 (4.70-6.10); RED CELL DISTRIBUTION WIDTH 16.4 % (11.5-14.5)
[2022-04-15 23:47] LABS: ANION GAP 21 (8-16); BLOOD UREA NITROGEN 32 MG/DL (7-18); BUN/CREATININE RATIO 14.7 (5.4-32.0); CHLORIDE 106 MMOL/L (99-107); CREATININE 2.17 MG/DL (0.60-1.10); GLUCOSE 162 MG/DL (70-104); SODIUM 144 MMOL/L (135-145); TOTAL CARBON DIOXIDE 17.2 MMOL/L (24-32); eGFR 31 ML/MIN
[2022-04-15 23:48] LABS: WHITE BLOOD COUNT 33.8 X10'3 (4.5-11.0)
[2022-04-15 23:49] LABS: HEMATOCRIT 21.4 % (42.0-52.0); HEMOGLOBIN 6.7 g/dl (14.0-17.9)
[2022-04-15 23:58] LABS: PHOSPHORUS 11.7 MG/DL (2.3-4.5)
[2022-04-15 23:59] LABS: POTASSIUM 6.9 MMOL/L (3.5-5.1)
[2022-04-16] VITALS (10 sets, daily range): BP systolic 0–57; BP diastolic 0–49
--- NOTE | 2022-04-16 00:30 | NUR ---
attempted to call critical H/H results to Dr. Yousif. Call goes to and voice mailbox is full. Call to Dr. Casas with orders noted
[2022-04-16] MEDS: piperacillin/tazo 3.375gm/50ml 50 ML IV SCH (00:47)
[2022-04-16] MEDS: bicarb dialysis sol 2K+/3 Ca2+ 5,000 ML HE SCH ×2 (01:01→03:57)
[2022-04-16] MEDS: albumin (Human) 5% 250ml 500 ML IV SCH ×2 (02:04→06:44)
[2022-04-16] MEDS: NORepinephrine inj. 32 MG in normal saline 250ml IV soln 218 ML IV SCH (02:27)
[2022-04-16] MEDS ORDERED: VANCOMYCIN LEVEL IV SCH (03:00)
--- NOTE | 2022-04-16 03:41 | NUR ---
monitor shows widening QRS complexes and flattening A-line waveform.
[2022-04-16] MEDS: sodium bicarbonate (8.4%) inj. 150 MEQ in dextrose 5%-water 850 ML IV SCH (03:57)
--- NOTE | 2022-04-16 09:06 | NUR ---
Pt at 0843. Dr Dias at bedside to call TOD.
[2022-04-19 07:56] LABS: ISTAT K 7.2 mmol/L (3.5-5.1)
[2022-04-19 07:57] LABS: ISTAT CREATININE 2.3 mg/dL (0.8-1.3); ISTAT IONIZED CALCIUM 0.76 mmol/L (1.03-1.32); POC BUN/CREATININE RATIO 20.4 (5.4-32.0)
[2022-04-19 07:58] LABS: ISTAT HGB 7.5 g/dl (14.0-17.9)
--- NOTE | 2022-04-26 10:57 | NUR ---
Case Management DC follow up: Patient .
== END 2022-04-16 08:43 | DRG 853 ==
LOC: ER 05:58 → ED HOLD 12:40 → CICU 2S 04-14 08:50
PROVIDERS: ADMIT Internal Medicine Critical Care Medicine; ATTEND Internal Medicine Critical Care Medicine
PROC: 30233N1 Transfusion of Nonautologous Red Blood Cells into Peripheral Vein, Percutaneous Approach (ICD-10-PCS; 2022-04-13)
PROC: BW211ZZ Computerized Tomography (CT Scan) of Abdomen and Pelvis using Low Osmolar Contrast (ICD-10-PCS; 2022-04-13)
PROC: 30233K1 Transfusion of Nonautologous Frozen Plasma into Peripheral Vein, Percutaneous Approach (ICD-10-PCS; 2022-04-14)
PROC: 30233M1 Transfusion of Nonautologous Plasma Cryoprecipitate into Peripheral Vein, Percutaneous Approach (ICD-10-PCS; 2022-04-14)
PROC: C713YZZ Planar Nuclear Medicine Imaging of Blood using Other Radionuclide (ICD-10-PCS; 2022-04-14)
PROC: 5A1945Z Respiratory Ventilation, 24-96 Consecutive Hours (ICD-10-PCS; 2022-04-15)
PROC: 0BH17EZ Insertion of Endotracheal Airway into Trachea, Via Natural or Artificial Opening (ICD-10-PCS; 2022-04-15)
PROC: 5A1D90Z Performance of Urinary Filtration, Continuous, Greater than 18 hours Per Day (ICD-10-PCS; 2022-04-15)
PROC: 05HY33Z Insertion of Infusion Device into Upper Vein, Percutaneous Approach (ICD-10-PCS; 2022-04-15)
PROC: B54MZZA Ultrasonography of Right Upper Extremity Veins, Guidance (ICD-10-PCS; 2022-04-15)
PROC: 0DQ90ZZ Repair Duodenum, Open Approach (ICD-10-PCS; principal; 2022-04-15 09:00)
PROC: 5A1D90Z Performance of Urinary Filtration, Continuous, Greater than 18 hours Per Day (ICD-10-PCS; 2022-04-16)
DX: A41.9 Sepsis, unspecified organism (principal); D65 Disseminated intravascular coagulation [defibrination syndrome]; R65.21 Severe sepsis with septic shock; K26.4 Chronic or unspecified duodenal ulcer with hemorrhage; E43 Unspecified severe protein-calorie malnutrition; N17.0 Acute kidney failure with tubular necrosis; J96.00 Acute respiratory failure, unspecified whether with hypoxia or hypercapnia; R18.8 Other ascites; E87.20 Acidosis, unspecified; D62 Acute posthemorrhagic anemia; R34 Anuria and oliguria; R68.0 Hypothermia, not associated with low environmental temperature; R74.01 Elevation of levels of liver transaminase levels; R77.8 Other specified abnormalities of plasma proteins; Z66 Do not resuscitate; D72.823 Leukemoid reaction; E11.65 Type 2 diabetes mellitus with hyperglycemia; E87.5 Hyperkalemia; J45.909 Unspecified asthma, uncomplicated; I10 Essential (primary) hypertension; F17.210 Nicotine dependence, cigarettes, uncomplicated; H57.04 Mydriasis; K74.60 Unspecified cirrhosis of liver; R57.8 Other shock; M54.9 Dorsalgia, unspecified; R00.1 Bradycardia, unspecified; Z59.00 Homelessness unspecified; Z68.23 Body mass index [BMI] 23.0-23.9, adult; Z71.6 Tobacco abuse counseling
CPT/HCPCS: 36410; 36415; 36430; 36600; 70450; 71045; 74018; 74178; 76937; 78278; 80047; 80048; 80053; 80069; 81001; 82803; 82948; 83036; 83605; 83735; 83880; 84100; 84132; 84145; 84484; 85007; 85018; 85025; 85027; 85379; 85384; 85610; 85730; 86885; 86900; 86901; 86920; 87040; 87077; 87081; 87088; 87186; 90935; 93005; 94002; 94003; 94760; 96361; 96365; 96366; 96375; 99291; 99292; A4618; A4628; A6213; A6258; A6449; A7000; A9560; C1751; C1752; C9113; E1594; G0378; J0330; J0610; J0696; J1100; J1170; J1720; J1815; J2250; J2405; J2543; J2597; J2704; J3010; J3370; J3490; J7030; J7040; J7050; J7060; J7070; J7120; P9012; P9016; P9035; P9045; P9047; P9059; Q9967